=== PATIENT | female | born 1960 | race Caucasian/White ===

== ENCOUNTER 2020-08-29 12:08 | Inpatient (IN) | payer BC, OTHER ==
[~2020-08-29] VITALS: Ht 170.2 cm; Wt 90.0 kg
--- NOTE | 2020-08-29 12:26 | NUR ---
PATIENT WALKED BACK FROM TRIAGE WITH CHIEF C/O CHEST PRESSURE. PER PATIENT STARTED HAVING "CHEST PRESSURE AND FEELING LIKE I CAN'T BREATHE RANDOMLY" SINCE MONDAY. PATIENT STATES SHE TESTED POSITIVE FOR COVID ON August, AND SYMPTOMS WENT AWAY UNTIL MONDAY. PATIENT ALSO C/O NAUSEA AND DIARRHEA, DENIES VOMITING. PATIENT SEEN AT URGENT CARE Monday08/28/2020 AND WAS TOLD EKG AND CHEST X-RAY WERE NORMAL. NAOMYN, VSS, CALL LIGHT WITHIN REACH.
--- NOTE | 2020-08-29 12:39 | NUR ---
ER PROVIDER AT BEDSIDE FOR EVALUATION.
[2020-08-29] MEDS ORDERED: ASPIRIN 81 MG TABLET CHEW ONE (12:49)
--- NOTE | 2020-08-29 12:50 | NUR ---
PAEDIATRICIAN AT BEDSIDE.
[2020-08-29] MEDS ORDERED: NITROGLYCERIN SINGLE TAB 0.4 MG SL ONE (12:52)
[2020-08-29] MEDS ORDERED: SODIUM CHLORIDE FLUSH 10ML SYR IVF ONE (13:00)
[2020-08-29] MEDS ORDERED: NITROGLYCERIN SINGLE TAB 0.4 MG SL PRN (13:00)
[2020-08-29] MEDS ORDERED: ASPIRIN 81 MG TABLET CHEW PO ONE (13:00)
--- NOTE | 2020-08-29 13:07 | NUR ---
20 GAUGE IV STARTED AND BLOOD COLLECTED AND SENT TO LAB.
[2020-08-29 13:14] LABS: BASOPHILS % (AUTO) 0 % (0-1); EOSINOPHILS % (AUTO) 1 % (1-7); LYMPHOCYTES % (AUTO) 27 % (22-44); MEAN CORPUSCULAR HEMOGLOBIN 30.3 pg (27.0-34.8); MEAN CORPUSCULAR HGB CONC 33.9 g/dL (32.4-35.8); MEAN PLATELET VOLUME 7.6 fL (7.4-10.4); MONOCYTES % (AUTO) 10 % (2-9); NEUTROPHILS % (AUTO) 62 % (42-75); PLATELET COUNT 310 x10^3/uL (130-400); RED BLOOD COUNT 4.89 x10^6/uL (3.82-5.3); RED CELL DISTRIBUTION WIDTH 12.7 % (9.6-15.2)
[2020-08-29 13:19] LABS: MD NO
[2020-08-29 13:26] LABS: ALANINE AMINOTRANSFERASE 28 U/L (12-78); ALBUMIN 3.7 g/dL (3.4-5.0); ANION GAP 7 mmol/L (5-15); CHLORIDE 110 mmol/L (98-107); CREATININE 0.66 mg/dL (0.55-1.02)
--- NOTE | 2020-08-29 13:29 | NUR ---
PATIENT RESTING IN [facility] ON PHONE, NADN, VSS, WARM BLANKET PROVIDED, PATIENT STATES CHEST PRESSURE/PAIN IS DOWN TO A 2/10 FROM A 4/10. NO FURTHER NEEDS AT THIS TIME, CALL LIGHT WITHIN REACH, WAITING FOR CMP RESULTS.
[2020-08-29 13:31] LABS: ALKALINE PHOSPHATASE 58 U/L (45-117); BILIRUBIN,TOTAL 0.7 mg/dL (0.2-1.0); TOTAL PROTEIN 7.3 g/dL (6.4-8.2); TROPONIN I < 0.015 ng/mL (0.000-0.045)
--- NOTE | 2020-08-29 14:11 | NUR ---
ER PROVIDER AT BEDSIDE TO DISCUSS POC.
[2020-08-29] MEDS ORDERED: TRAZODONE 50MG TABLET PO PRN (14:30)
[2020-08-29] MEDS ORDERED: NITROGLYCERIN 0.4 MG BOTTLE (25 TABS) SL PRN (14:30)
[2020-08-29] MEDS ORDERED: ONDANSETRON ODT 4 MG PO PRN (14:30)
[2020-08-29] MEDS ORDERED: POLYETHYLENE GLYCOL 17 GM PACKET PO PRN (14:30)
[2020-08-29] MEDS ORDERED: ONDANSETRON 2MG/ML, 2ML IVPush PRN (14:30)
[2020-08-29] MEDS ORDERED: MELATONIN 5 MG TABLET PO PRN (14:30)
[2020-08-29] MEDS ORDERED: ENOXAPARIN 40 MG/0.4 ML ONE (14:39)
[2020-08-29] MEDS: ENOXAPARIN 40 MG/0.4 ML SQ SCH (14:41)
--- NOTE | 2020-08-29 14:46 | NUR ---
PATIENT MEDICATED PER [facility], FOOD TRAY ORDERED, PATIENT AMBULATED TO BATHROOM WITH STEADY GAIT.
--- NOTE | 2020-08-29 15:08 | NUR ---
THROUGHPUT RN: RAMSEY NOONAN CALLED WITH CONCERN PT TESTED POSITIVE FOR COVID 08/18/20. ERP DR. FRANK DID NOT ORDER COVID MONITORED, DR. SAHA ADMIT PROVIDER ALSO SAW PT AND DID NOT ORDER COVID MONITORED FLOOR, BOTH PROVIDERS PLACED CARD TELE ORDER. DR. SAHA PAGED TO CLARIFY CONCERN BY THIS RN AND RAMSEY NOONAN
[2020-08-29] MEDS ORDERED: ACETAMINOPHEN 325 MG TABLET ONE (15:12)
[2020-08-29] MEDS: ACETAMINOPHEN 325 MG TABLET PO PRN ×2 (15:14→20:46)
--- NOTE | 2020-08-29 15:14 | NUR ---
MEAL TRAY PROVIDED TO PATIENT, PATIENT REQUESTING TYLENOL, MEDICATED PER [facility], CALL LIGHT WITHIN REACH, NO FURTHER NEEDS AT THIS TIME, WAITING FOR ROOM UPSTAIRS.
--- NOTE | 2020-08-29 15:36 | NUR ---
Per Dr. Shetty, please cancel admit to Cardiac Telemetry and admit to Covid Monitored level of care.
[2020-08-29] MEDS ORDERED: HYDR-826 PO (16:03)
[2020-08-29] MEDS ORDERED: FAMO20TA7 PO (16:03)
[2020-08-29] MEDS ORDERED: LISI-167 PO (16:03)
[2020-08-29] MEDS ORDERED: CETI10CA PO (16:03)
--- NOTE | 2020-08-29 16:07 | NUR ---
REPORT GIVEN TO KRISTIE GUARDADO ON [facility] TELEMETRY FLOOR FOR TRANSFER OF PATIENT CARE.
[2020-08-29] MEDS ORDERED: CYCL5TAB PO (16:10)
[2020-08-29] MEDS ORDERED: PANT40TA6 PO (16:10)
[2020-08-29] MEDS ORDERED: METF500T27 PO (16:10)
[2020-08-29] MEDS ORDERED: BUDE10.2 INH (16:10)
--- NOTE | 2020-08-29 16:20 | NUR ---
PATIENT TRANSFERRED IN STABLE CONDITION TO MEDICAL TELEMETRY FLOOR VIA GURNEY BY EDITOR CONNECTED TO MANAGER BODY. ALL PATIENT BELONGINGS GATHERED AND TAKEN TO FLOOR WITH PATIENT.
[2020-08-29 16:33] VITALS: BP 135/81
[2020-08-29 16:56] VITALS: BP 135/71
[2020-08-29] MEDS ORDERED: FAMOTIDINE 20 MG TABLET PO SCH (17:30)
[2020-08-29] MEDS: ASCORBIC ACID 500 MG TABLET PO SCH (18:24)
[2020-08-29] MEDS: CHOLECALCIFEROL 5,000u TAB PO SCH (18:24)
[2020-08-29] MEDS: ZINC SULFATE 220 MG CAPSULE PO SCH (18:24)
[2020-08-29] MEDS: metFORMIN 500 MG TABLET PO SCH (20:06)
[2020-08-29] MEDS: TEMAZEPAM 15 MG CAPSULE PO PRN (20:06)
[2020-08-29 20:24] VITALS: BP 145/89
[2020-08-29 21:24] LABS: TROPONIN I < 0.015 ng/mL (0.000-0.045)
[2020-08-30 01:28] VITALS: BP 105/71
[2020-08-30 04:33] LABS: CHOL/HDL RATIO 4.1; LDL/HDL RATIO 2.5 (0.5-3.0)
[2020-08-30] MEDS: ASPIRIN 325 MG TABLET EC PO SCH (05:27)
[2020-08-30 08:16] VITALS: BP 151/83
[2020-08-30] MEDS: ZINC SULFATE 220 MG CAPSULE PO SCH (09:00)
[2020-08-30] MEDS: CHOLECALCIFEROL 5,000u TAB PO SCH (09:00)
[2020-08-30] MEDS: TEMPLATE NON-FORMULARY MED. (Budesonide/Formoterol Fumarate (Symbicort 160-4.5 Mcg Inhaler INH SCH (09:00)
[2020-08-30] MEDS: ASCORBIC ACID 500 MG TABLET PO SCH ×2 (09:15→16:59)
[2020-08-30] MEDS: PANTOPRAZOLE 40MG TABLET PO SCH (09:15)
[2020-08-30] MEDS: CETIRIZINE 10 MG TABLET PO SCH (09:16)
[2020-08-30] MEDS: CYCLOBENZAPRINE 10 MG TABLET PO SCH (09:16)
[2020-08-30] MEDS: metFORMIN 500 MG TABLET PO SCH ×2 (09:17→20:53)
[2020-08-30] MEDS: LISINOPRIL 10 MG TABLET PO SCH (09:23)
[2020-08-30] MEDS ORDERED: ATOR20TA PO ×2 (11:38)
[2020-08-30] MEDS ORDERED: PRED20TA PO ×2 (11:38)
[2020-08-30] MEDS ORDERED: ASPI-650 PO (11:38)
[2020-08-30 12:19] VITALS: BP 130/80
[2020-08-30] MEDS: ENOXAPARIN 40 MG/0.4 ML SQ SCH (14:30)
[2020-08-30] MEDS: ACETAMINOPHEN 325 MG TABLET PO PRN (17:07)
[2020-08-30 20:43] VITALS: BP 110/71
[2020-08-30] MEDS: TEMAZEPAM 15 MG CAPSULE PO PRN (20:53)
[2020-08-31 00:18] VITALS: BP 110/71
[2020-08-31] MEDS: ASPIRIN 325 MG TABLET EC PO SCH ×2 (05:51→20:06)
[2020-08-31 07:15] VITALS: BP 128/82
[2020-08-31] MEDS: PANTOPRAZOLE 40MG TABLET PO SCH (08:39)
[2020-08-31] MEDS: CYCLOBENZAPRINE 10 MG TABLET PO SCH (08:40)
[2020-08-31] MEDS: CHOLECALCIFEROL 5,000u TAB PO SCH (08:40)
[2020-08-31] MEDS: LISINOPRIL 10 MG TABLET PO SCH (08:40)
[2020-08-31] MEDS: ASCORBIC ACID 500 MG TABLET PO SCH ×2 (08:40→17:43)
[2020-08-31] MEDS: CETIRIZINE 10 MG TABLET PO SCH (08:40)
[2020-08-31] MEDS: ZINC SULFATE 220 MG CAPSULE PO SCH (08:40)
[2020-08-31] MEDS: metFORMIN 500 MG TABLET PO SCH ×2 (08:40→20:05)
[2020-08-31] MEDS: TEMPLATE NON-FORMULARY MED. (Budesonide/Formoterol Fumarate (Symbicort 160-4.5 Mcg Inhaler INH SCH (09:00)
[2020-08-31] MEDS ORDERED: ALBUTEROL HFA 90 MCG/SPRAY INH PRN (09:30)
[2020-08-31] MEDS: FLUTICASONE/VILANTEROL 100-25MCG/INH INH SCH (10:05)
[2020-08-31 12:04] VITALS: BP 134/80
[2020-08-31] MEDS: ENOXAPARIN 40 MG/0.4 ML SQ SCH (14:30)
[2020-08-31 19:50] VITALS: BP 122/79
[2020-08-31] MEDS: TEMAZEPAM 15 MG CAPSULE PO PRN (20:32)
[2020-08-31] MEDS: ATORVASTATIN 40 MG TABLET PO SCH (20:33)
[2020-08-31] MEDS: ACETAMINOPHEN 325 MG TABLET PO PRN (20:33)
[2020-09-01 00:48] VITALS: BP 102/69
[2020-09-01] MEDS ORDERED: VANCOMYCIN PMX 1GM/200ML 200 ML IVPB ONE (06:00)
[2020-09-01 06:27] VITALS: BP 126/84
[2020-09-01] MEDS: TEMPLATE NON-FORMULARY MED. (Budesonide/Formoterol Fumarate (Symbicort 160-4.5 Mcg Inhaler INH SCH (07:51)
[2020-09-01] MEDS: ASCORBIC ACID 500 MG TABLET PO SCH ×2 (08:00→16:35)
[2020-09-01] MEDS: FLUTICASONE/VILANTEROL 100-25MCG/INH INH SCH (08:46)
[2020-09-01] MEDS: SODIUM CHLORIDE 0.9% 1,000 ML IV SCH ×5 (08:46→21:18)
[2020-09-01] MEDS: CYCLOBENZAPRINE 10 MG TABLET PO SCH (08:52)
[2020-09-01] MEDS: CETIRIZINE 10 MG TABLET PO SCH (08:53)
[2020-09-01] MEDS: LISINOPRIL 10 MG TABLET PO SCH (08:53)
[2020-09-01] MEDS: PANTOPRAZOLE 40MG TABLET PO SCH (08:53)
[2020-09-01] MEDS: metFORMIN 500 MG TABLET PO SCH (08:55)
[2020-09-01] MEDS: ZINC SULFATE 220 MG CAPSULE PO SCH (09:00)
[2020-09-01] MEDS: CHOLECALCIFEROL 5,000u TAB PO SCH (09:00)
[2020-09-01] MEDS ORDERED: TEMAZEPAM 30 MG CAPSULE PO PRN (09:30)
[2020-09-01] MEDS: FLUTICASONE NASAL SPRAY 16GM NAS SCH (10:43)
[2020-09-01] MEDS: POLYETHYLENE GLYCOL 17 GM PACKET PO SCH (10:46)
[2020-09-01 12:10] VITALS: BP 110/56
[2020-09-01] MEDS ORDERED: MIDAZOLAM 1 MG/ML, 5ML ONE (12:43)
[2020-09-01] MEDS ORDERED: FENTANYL PF 100 MCG/2ML ONE ×2 (12:43→14:16)
[2020-09-01] MEDS ORDERED: TICAGRELOR 90 MG TABLET ONE (12:43)
[2020-09-01] MEDS ORDERED: VERAPAMIL 2.5 MG/ML, 2ML ONE (12:44)
[2020-09-01] MEDS ORDERED: HEPARIN 1,000 UNITS/ML, 10ML ONE (12:44)
[2020-09-01] MEDS ORDERED: BIVALIRUDIN 250 MG ONE (12:44)
[2020-09-01] MEDS ORDERED: LIDOCAINE 2%, 20ML ONE ×2 (12:44→13:55)
[2020-09-01] MEDS ORDERED: NITROGLYCERIN 5 MG/ML, 10ML ONE (12:44)
[2020-09-01] MEDS ORDERED: VANCOMYCIN 500 MG ONE (13:55)
[2020-09-01] MEDS ORDERED: VANCOMYCIN PMX 1GM/200ML 200 ML ONE (13:56)
[2020-09-01] MEDS ORDERED: MIDAZOLAM 1 MG/ML, 2ML ONE (14:16)
[2020-09-01] MEDS ORDERED: HOLD MEDICATION MC PRN (15:00)
[2020-09-01] MEDS: ACETAMINOPHEN 325 MG TABLET PO PRN (17:07)
[2020-09-01] MEDS ORDERED: TEMAZEPAM 15 MG CAPSULE ONE (20:51)
[2020-09-01] MEDS: ATORVASTATIN 40 MG TABLET PO SCH (20:57)
[2020-09-01 21:15] VITALS: BP 114/74
[2020-09-01] MEDS: SODIUM CHLORIDE FLUSH 10ML SYR IVF SCH (21:16)
[2020-09-02 02:45] VITALS: BP 100/66
[2020-09-02] MEDS: HYDROcodone/APAP 5/325 TABLET PO PRN ×2 (04:31→07:06)
[2020-09-02 04:41] LABS: ANION GAP 5 mmol/L (5-15); CALCIUM 8.7 mg/dL (8.5-10.1); CHLORIDE 109 mmol/L (98-107); CREATININE 0.53 mg/dL (0.55-1.02)
[2020-09-02] MEDS: SODIUM CHLORIDE 0.9% 1,000 ML IV SCH ×2 (07:11→07:12)
[2020-09-02] MEDS: TEMPLATE NON-FORMULARY MED. (Budesonide/Formoterol Fumarate (Symbicort 160-4.5 Mcg Inhaler INH SCH (07:13)
[2020-09-02 07:43] VITALS: BP 135/81
[2020-09-02] MEDS ORDERED: CARVEDILOL 3.125 MG TABLET PO SCH (09:00)
[2020-09-02] MEDS: FLUTICASONE/VILANTEROL 100-25MCG/INH INH SCH (09:29)
[2020-09-02] MEDS: FLUTICASONE NASAL SPRAY 16GM NAS SCH (09:29)
[2020-09-02] MEDS: CYCLOBENZAPRINE 10 MG TABLET PO SCH (09:30)
[2020-09-02] MEDS: CHOLECALCIFEROL 5,000u TAB PO SCH (09:30)
[2020-09-02] MEDS: SODIUM CHLORIDE FLUSH 10ML SYR IVF SCH (09:31)
[2020-09-02] MEDS: POLYETHYLENE GLYCOL 17 GM PACKET PO SCH (09:31)
[2020-09-02] MEDS: PANTOPRAZOLE 40MG TABLET PO SCH (09:31)
[2020-09-02] MEDS: ZINC SULFATE 220 MG CAPSULE PO SCH (09:31)
[2020-09-02] MEDS: LISINOPRIL 10 MG TABLET PO SCH (09:31)
[2020-09-02] MEDS: CETIRIZINE 10 MG TABLET PO SCH (09:31)
[2020-09-02] MEDS: ASCORBIC ACID 500 MG TABLET PO SCH (09:31)
[2020-09-02] MEDS ORDERED: FLUT1AER INH (10:22)
[2020-09-02] MEDS ORDERED: HYDR-3237 PO ×3 (10:22→14:03)
[2020-09-02] MEDS ORDERED: ATOR40TA78 PO (10:22)
[2020-09-02] MEDS ORDERED: ALBU18HF INH (10:22)
[2020-09-02] MEDS ORDERED: CARV3.1212 PO (10:22)
[2020-09-02] MEDS ORDERED: PRED20TA PO (10:24)
[2020-09-02] MEDS ORDERED: ENOXAPARIN 40 MG/0.4 ML SQ SCH (14:30)
[2020-09-03] MEDS ORDERED: ASPIRIN 81 MG TABLET CHEW PO SCH (06:00)
== END 2020-09-02 12:51 | disposition home or self-care (01) | DRG 242 ==
LOC: ED 12:37 → EDIP 14:22 → OBSVTOIN 14:22 → SUATTDRO 14:24 → 4EST 16:26 → 5SO 09-01 15:08
PROVIDERS: ADMIT Internal Medicine; ATTEND Hospitalist
PROC: 02H63JZ Insertion of Pacemaker Lead into Right Atrium, Percutaneous Approach (ICD-10-PCS; principal; 2020-09-01)
PROC: 02HK3JZ Insertion of Pacemaker Lead into Right Ventricle, Percutaneous Approach (ICD-10-PCS; 2020-09-01)
PROC: 0JH606Z Insertion of Pacemaker, Dual Chamber into Chest Subcutaneous Tissue and Fascia, Open Approach (ICD-10-PCS; 2020-09-01)
PROC: 4A023N7 Measurement of Cardiac Sampling and Pressure, Left Heart, Percutaneous Approach (ICD-10-PCS; 2020-09-01)
PROC: B2111ZZ Fluoroscopy of Multiple Coronary Arteries using Low Osmolar Contrast (ICD-10-PCS; 2020-09-01)
PROC: B2151ZZ Fluoroscopy of Left Heart using Low Osmolar Contrast (ICD-10-PCS; 2020-09-01)
DX: I49.5 Sick sinus syndrome (principal); U07.1 COVID-19; J98.11 Atelectasis; I47.1 Supraventricular tachycardia; I24.9 Acute ischemic heart disease, unspecified; G89.18 Other acute postprocedural pain; J45.909 Unspecified asthma, uncomplicated; K21.9 Gastro-esophageal reflux disease without esophagitis; Z86.16 Personal history of COVID-19; E11.9 Type 2 diabetes mellitus without complications; E66.9 Obesity, unspecified; E78.5 Hyperlipidemia, unspecified; F41.9 Anxiety disorder, unspecified; I10 Essential (primary) hypertension; I25.10 Atherosclerotic heart disease of native coronary artery without angina pectoris; I45.5 Other specified heart block; Z87.891 Personal history of nicotine dependence; Z90.710 Acquired absence of both cervix and uterus; Z79.899 Other long term (current) drug therapy; Z79.891 Long term (current) use of opiate analgesic; Z79.01 Long term (current) use of anticoagulants
CPT/HCPCS: 33208; 36415; 93458; J3490; 71045; 71250; 80048; 80053; 80061; 83036; 83880; 84484; 85025; 85379; 87635; 93005; 93306; 99156; 99157; C1769; C1779; C1785; C1892; C1894; G0378; J0583; J1644; J1650; J2250; J2405; J3010; J3370; J7030; J7512; Q0177; Q9967

== ENCOUNTER 2020-09-06 12:55 | Emergency (ER) | payer BC ==
[~2020-09-06] VITALS: Ht 170.2 cm; Wt 87.0 kg
[~2020-09-06 12:55] MED LIST: ALBU18HF INH; ASPI-650 PO; ATOR20TA PO; ATOR40TA78 PO; BUDE10.2 INH; CARV3.1212 PO; CETI10CA PO; CYCL5TAB PO; FAMO20TA7 PO; FLUT1AER INH; HYDR-3237 PO; HYDR-826 PO; LISI-167 PO; METF500T27 PO; PANT40TA6 PO; PRED20TA PO
[2020-09-06 14:04] LABS: MEAN CORPUSCULAR HGB CONC 33.4 g/dL (32.4-35.8); MEAN PLATELET VOLUME 7.8 fL (7.4-10.4); PLATELET COUNT 299 x10^3/uL (130-400); RED BLOOD COUNT 4.65 x10^6/uL (3.82-5.3); RED CELL DISTRIBUTION WIDTH 12.6 % (9.6-15.2)
[2020-09-06 14:16] LABS: ALANINE AMINOTRANSFERASE 142 U/L (12-78); ALBUMIN 3.4 g/dL (3.4-5.0); ANION GAP 5 mmol/L (5-15); CALCIUM 8.7 mg/dL (8.5-10.1); CHLORIDE 111 mmol/L (98-107); CREATININE 0.73 mg/dL (0.55-1.02)
[2020-09-06 14:20] LABS: ALKALINE PHOSPHATASE 85 U/L (45-117); BILIRUBIN,TOTAL 0.7 mg/dL (0.2-1.0); TOTAL PROTEIN 6.8 g/dL (6.4-8.2); TROPONIN I < 0.015 ng/mL (0.000-0.045)
--- NOTE | 2020-09-06 14:22 | NUR ---
Pt was admitted to the hospital for COVID on the . "While I was here I had a 3.7 second pause they called it asystole and then my HR went to 33 while I was sleeping." Pt denied being diagnosed with 3rd degree heart block. Pt had [employer] pacer placed on 09/02/20 and was d/c'd. Pt states "I was feeling better before the pacer." Pt presents with stable vitals.
[2020-09-06 14:36] LABS: MD YES
[2020-09-06 14:41] LABS: BAND#(MANUAL) 0.35 x10^3/uL; BANDS%(MANUAL) 2 % (0-7); BASOS#(MANUAL) 0.17 x10^3/uL (0-0.1); BASOS% (MANUAL) 1 % (0-1); LYMPH#(MANUAL) 1.91 x10^3/uL (1-3.4); LYMPHS% (MANUAL) 11 % (22-44); MONOS#(MANUAL) 0.87 x10^3/uL (0.3-2.7); MONOS% (MANUAL) 5 % (2-9); SEG#(MANUAL) 14.09 x10^3/uL (1.8-6.8); SEGS% (MANUAL) 81 % (42-75)
[2020-09-06 14:42] LABS: <PLATELET ESTIMATE> ADEQUATE; <PLT MORPHOLOGY> NORMAL PLT MORPH; <RBC MORPHOLOGY> NORMAL
[2020-09-06] MEDS ORDERED: MAALOX/HYOSCYAMINE/LIDOCAINE 45 ML BTL PO ONE (15:30)
[2020-09-06] MEDS ORDERED: MAALOX/HYOSCYAMINE/LIDOCAINE 45 ML BTL ONE (16:30)
--- NOTE | 2020-09-06 16:47 | NUR ---
TP RN: CALL TO [employer] TO REQUEST INTERROGATION OF PACEMAKER PER MD REQUEST. AWAITING CALL BACK/ARRIVAL FROM REP.
--- NOTE | 2020-09-06 17:38 | NUR ---
[employer] REP CALLED. INTERROGATION OF PACER IS NEGATIVE. DR ARBOLEDA AWARE. OK TO DC PATIENT PER MD
[2020-09-06 17:51] VITALS: BP 134/74
== END 2020-09-06 17:54 | disposition home or self-care (01) ==
LOC: ED 13:18
DX: R06.00 Dyspnea, unspecified (principal); R09.1 Pleurisy; I10 Essential (primary) hypertension; E11.9 Type 2 diabetes mellitus without complications; J45.909 Unspecified asthma, uncomplicated; E78.5 Hyperlipidemia, unspecified; Z95.0 Presence of cardiac pacemaker; Z87.891 Personal history of nicotine dependence
CPT/HCPCS: 36415; 71045; 80053; 83880; 84484; 85025; 85379; 93005; 99285